=== PATIENT | female | born 1995 | race Hispanic/Latino ===

== ENCOUNTER 2017-02-03 19:10 | Emergency (ER) | payer BC ==
[~2017-02-03] VITALS: Ht 167.6 cm; Wt 50.0 kg
[~2017-02-03 19:10] MED LIST: ULTRAM50 M1 PO; ZOFRAN4 MG/TAB PO
[2017-02-03 22:33] LABS: HEMATOCRIT 35.7 % (37.0-47.0); HEMOGLOBIN 12.2 g/dl (12.0-16.0); IMMATURE GRANULOCYTES 0.2 % (0.0-1.0); MEAN CELL VOLUME 87.9 fL CALC (80.0-100.0); MEAN CORPUSCULAR HGB CONC 34.2 g/L CALC (32.0-36.0); NEUT# 6.36 thou/uL (2.00-7.15); RED BLOOD COUNT 4.06 mill/uL (4.20-5.60); RED CELL DISTRI WIDTH 12.5 % (11.5-15.5)
[2017-02-03 22:46] LABS: URINE BILIRUBIN - DIPSTICK NEGATIVE (NEGATIVE); URINE BLOOD DIPSTICK SMALL (NEGATIVE); URINE CLARITY CLEAR; URINE COLOR YELLOW; URINE GLUCOSE - DIPSTICK NEGATIVE (NEGATIVE); URINE KETONE NEGATIVE (NEGATIVE); URINE LEUK ESTERASE NEGATIVE (NEGATIVE); URINE NITRITE - DIPSTICK NEGATIVE (Negative); URINE PH 6.5 (4.5-8.0); URINE PROTEIN - DIPSTICK NEGATIVE (NEG-TRACE); URINE SPECIFIC GRAVITY <=1.005; URINE UROBILINOGEN - DIPSTICK 0.2 E.U./dL (0.2)
[2017-02-03 22:47] LABS: ALKALINE PHOSPHATASE 95 u/l (38-126); AMYLASE 59 u/l (30-110); ANION GAP 17 (6-22 (CALC)); BILIRUBIN, TOTAL 0.4 mg/dL (0.0-1.4); BUN 6 mg/dL (7-17); BUN/CREATININE RATIO 11 (12-20 (CALC)); CALCIUM 9.1 mg/dL (8.4-10.2); CARBON DIOXIDE 25 mmol/l (22-30); CHLORIDE 103 mmol/l (95-108); CREATININE 0.5 mg/dL (0.5-1.0); GFR > 60 ML/MIN (>=60 (CALC)); GFR FOR AFR.AMER. > 60 ML/MIN (>=60 (CALC)); GLUCOSE 81 mg/dL (65-105); LIPASE 74 u/l (23-300); POTASSIUM 3.4 mmol/l (3.5-5.1); SGOT/AST 16 u/l (14-36); SGPT/ALT 18 u/l (9-52); SODIUM 142 mmol/l (137-146); TOTAL PROTEIN 7.4 g/dL (6.3-8.2)
[2017-02-03 22:48] LABS: BARBITURATES NEGATIVE (NEGATIVE); COCAINE NEGATIVE (NEGATIVE); METHADONE NEGATIVE (NEGATIVE); OXCYCODONE NEGATIVE (NEGATIVE); TETRAHYDROCANNABIONOL NEGATIVE (NEGATIVE); TRICYLIC ANTIDEPRESSANTS NEGATIVE (NEGATIVE)
[2017-02-03 22:54] LABS: INFLUENZA A NONE DETECTED (NONE DETECT); INFLUENZA B NONE DETECTED (NONE DETECT)
[2017-02-03 22:57] LABS: URINE BACTERIA RARE hpf; URINE MUCUS FEW hpf (NONE-FEW); URINE SQUAMOUS EPITHELIAL CELL FEW EPI/hpf (0-FEW); URINE WBC 0-2 WBC/hpf (0-5)
[2017-02-03] MEDS ORDERED: AMOXICILLIN500 MG PO (23:49)
[2017-02-04 00:20] VITALS: BP 115/68
== END 2017-02-04 00:20 | disposition home or self-care (01) | DRG 392 ==
LOC: ED 19:10
PROVIDERS: Emergency Medicine
DX: R11.2 Nausea with vomiting, unspecified (principal); R42 Dizziness and giddiness; R19.7 Diarrhea, unspecified

== ENCOUNTER 2017-10-09 09:14 | Emergency (ER) | payer BC ==
[~2017-10-09] VITALS: Ht 167.6 cm; Wt 51.0 kg
[~2017-10-09 09:14] MED LIST changes: +AMOXICILLIN500 MG PO
[2017-10-09] MEDS ORDERED: TAM75CAP PO (10:33)
[2017-10-09 10:37] VITALS: BP 118/77
== END 2017-10-09 10:40 | disposition home or self-care (01) | DRG 153 ==
LOC: ED 09:14
DX: J11.1 Influenza due to unidentified influenza virus with other respiratory manifestations (principal); R05 Cough; R50.9 Fever, unspecified

== ENCOUNTER 2018-01-20 20:55 | Emergency (ER) | payer BC ==
[~2018-01-20] VITALS: Ht 167.6 cm; Wt 52.2 kg
[~2018-01-20 20:55] MED LIST changes: +TAM75CAP PO
[2018-01-20 22:26] LABS: URINE BILIRUBIN - DIPSTICK NEGATIVE (NEGATIVE); URINE BLOOD DIPSTICK NEGATIVE (NEGATIVE); URINE COLOR YELLOW; URINE GLUCOSE - DIPSTICK NEGATIVE (NEGATIVE); URINE KETONE NEGATIVE (NEGATIVE); URINE LEUK ESTERASE NEGATIVE (NEGATIVE); URINE NITRITE - DIPSTICK NEGATIVE (Negative); URINE PROTEIN - DIPSTICK NEGATIVE (NEG-TRACE); URINE UROBILINOGEN - DIPSTICK 0.2 E.U./dL (0.2)
[2018-01-20 22:27] LABS: URINE CLARITY CLEAR
[2018-01-20 22:27] LABS: HEMATOCRIT 39.5 % (37.0-47.0); HEMOGLOBIN 13.6 g/dl (12.0-16.0); IMMATURE GRANULOCYTES 0.3 % (0.0-1.0); MEAN CELL VOLUME 89.4 fL CALC (80.0-100.0); MEAN CORPUSCULAR HGB 30.8 pG CALC (26.0-32.0); MEAN CORPUSCULAR HGB CONC 34.4 g/L CALC (32.0-36.0); NEUT# 4.86 thou/uL (2.00-7.15); RED BLOOD COUNT 4.42 mill/uL (4.20-5.60); RED CELL DISTRI WIDTH 12.1 % (11.5-15.5)
[2018-01-20 22:41] LABS: ALKALINE PHOSPHATASE 97 u/l (38-126); BILIRUBIN, TOTAL 0.3 mg/dL (0.0-1.4); BUN 10 mg/dL (7-17); BUN/CREATININE RATIO 17 (12-20 (CALC)); CARBON DIOXIDE 25 mmol/l (22-30); CHLORIDE 103 mmol/l (95-108); CREATININE 0.6 mg/dL (0.5-1.0); GFR > 60 ML/MIN (>=60 (CALC)); GFR FOR AFR.AMER. > 60 ML/MIN (>=60 (CALC)); LIPASE 119 u/l (23-300); SGOT/AST 21 u/l (14-36); SGPT/ALT 31 u/l (9-52); SODIUM 144 mmol/l (137-146)
[2018-01-20 22:43] LABS: ANION GAP 20 (6-22 (CALC)); POTASSIUM 4.1 mmol/l (3.5-5.1); TOTAL PROTEIN 9.2 g/dL (6.3-8.2)
[2018-01-21] MEDS ORDERED: ZOFRAN4 MG/TAB PO (00:45)
[2018-01-21 01:10] VITALS: BP 114/71
== END 2018-01-21 01:28 | disposition home or self-care (01) | DRG 392 ==
LOC: ED 20:55
PROVIDERS: Emergency Medicine
DX: R10.84 Generalized abdominal pain (principal); R11.0 Nausea

== ENCOUNTER 2020-04-22 10:38 | Emergency (ER) | payer OTHER ==
[~2020-04-22] VITALS: Ht 167.6 cm; Wt 53.0 kg
[2020-04-22] MEDS ORDERED: AMOXICILLIN875 MG PO (12:11)
[2020-04-22 12:30] VITALS: BP 118/83
== END 2020-04-22 12:30 | disposition home or self-care (01) | DRG 153 ==
LOC: ED 10:38
DX: J02.9 Acute pharyngitis, unspecified (principal); R09.81 Nasal congestion; Z20.828 Contact with and (suspected) exposure to other viral communicable diseases

== ENCOUNTER 2020-12-22 17:24 | Emergency (ER) | payer OTHER ==
[~2020-12-22] VITALS: Ht 167.6 cm; Wt 54.5 kg
[~2020-12-22 17:24] MED LIST changes: +AMOXICILLIN875 MG PO
[2020-12-22 17:45] VITALS: BP 132/71
[2020-12-22 18:02] LABS: HEMOGLOBIN 12.6 g/dl (12.0-16.0); IMMATURE GRANULOCYTES 0.8 % (0.0-5.0); MEAN CELL VOLUME 90.3 fL CALC (80.0-100.0); MEAN CORPUSCULAR HGB 29.9 pG CALC (26.0-32.0); MEAN CORPUSCULAR HGB CONC 33.2 g/dL CAL (32.0-36.0); NEUT# 9.47 thou/uL (2.00-7.15); RED BLOOD COUNT 4.21 mill/uL (4.20-5.60); RED CELL DISTRI WIDTH 12.5 % (11.5-15.5)
[2020-12-22 18:10] LABS: GFR > 60 ML/MIN (>=60 (CALC)); GFR FOR AFR.AMER. > 60 ML/MIN (>=60 (CALC))
[2020-12-22 18:24] LABS: ACT PARTIAL THROMBO TIME 22.9 SECONDS (20.0-32.5); ALBUMIN 4.8 g/dL (3.2-5.0); ALKALINE PHOSPHATASE 91 u/l (38-126); ANION GAP 14 (6-22 (CALC)); BUN 15 mg/dL (7-17); BUN/CREATININE RATIO 21 (12-20 (CALC)); CARBON DIOXIDE 25 mmol/l (22-30); CHLORIDE 104 mmol/l (95-108); CREATININE 0.7 mg/dL (0.5-1.0); GFR > 60 ML/MIN (>=60 (CALC)); GFR FOR AFR.AMER. > 60 ML/MIN (>=60 (CALC)); LIPASE 133 u/l (23-300); POTASSIUM 3.9 mmol/l (3.5-5.1); PROTHROMBIN TIME 10.2 SECONDS (9.0-12.5); SGOT/AST 36 u/l (14-36); SODIUM 139 mmol/l (137-146); TOTAL PROTEIN 8.5 g/dL (6.3-8.2)
[2020-12-22 18:29] LABS: BILIRUBIN, TOTAL 0.5 mg/dL (0.0-1.4)
[2020-12-22 19:30] LABS: URINE BILIRUBIN - DIPSTICK NEGATIVE (NEGATIVE); URINE BLOOD DIPSTICK TRACE-LYSED (NEGATIVE); URINE CLARITY CLEAR; URINE COLOR YELLOW; URINE GLUCOSE - DIPSTICK NEGATIVE (NEGATIVE); URINE KETONE NEGATIVE (NEGATIVE); URINE LEUK ESTERASE NEGATIVE (Negative); URINE NITRITE - DIPSTICK NEGATIVE (Negative); URINE PROTEIN - DIPSTICK NEGATIVE (NEG-TRACE); URINE SPECIFIC GRAVITY 1.015; URINE UROBILINOGEN - DIPSTICK 0.2 E.U./dL (0.2)
[2020-12-22] MEDS ORDERED: CYCLOBENZAPRINE10 MG PO (20:14)
== END 2020-12-22 21:25 | disposition home or self-care (01) | DRG 538 ==
LOC: ED 17:24
DX: S76.011A Strain of muscle, fascia and tendon of right hip, initial encounter (principal); S96.912A Strain of unspecified muscle and tendon at ankle and foot level, left foot, initial encounter; S70.01XA Contusion of right hip, initial encounter; S90.02XA Contusion of left ankle, initial encounter; S80.212A Abrasion, left knee, initial encounter; S80.211A Abrasion, right knee, initial encounter; S40.211A Abrasion of right shoulder, initial encounter; V59.50XA Passenger in pick-up truck or van injured in collision with unspecified motor vehicles in traffic accident, initial encounter
CPT/HCPCS: Q9967

== ENCOUNTER 2021-04-25 11:08 | Emergency (ER) | payer OTHER ==
[~2021-04-25] VITALS: Ht 167.6 cm; Wt 52.3 kg
[~2021-04-25 11:08] MED LIST changes: +CYCLOBENZAPRINE10 MG PO
[2021-04-25] MEDS ORDERED: OCEAN NASAL0.65 % (12:43)
[2021-04-25 13:28] VITALS: BP 113/71
== END 2021-04-25 13:29 | disposition home or self-care (01) | DRG 153 ==
LOC: ED 11:08
DX: J06.9 Acute upper respiratory infection, unspecified (principal); Z86.16 Personal history of COVID-19; Z20.822 Contact with and (suspected) exposure to COVID-19